=== PATIENT | female | born 1990 | race Caucasian/White ===

== ENCOUNTER 2021-12-15 13:38 | Emergency (ER) | payer OTHER ==
[~2021-12-15] VITALS: Ht 157.5 cm; Wt 67.8 kg
[2021-12-15] MEDS ORDERED: IV NORMAL SALINE 1,000ML 1,000 ML IV ONE (14:00)
--- NOTE | 2021-12-15 14:13 | PHYS DOC ---
General Adult EDM: Chief Complaint: RECTAL BLEED HPI: HPI: 31-year-old female presents with rectal bleeding. Patient states that she has been having bright red bleeding for about the last 1 week. There was no particular event when it started. It is painful when she defecates. Is occasionally uncomfortable when she is just sitting in a chair but not most of the time. She presents today because she has noticed drops of blood even when she is just urinating. She has had a repaired rectal fissure in the past. This was several years ago. The patient does experience occasional constipation. He is not on any blood thinners or aspirin. Review of Systems: Review of Systems: Constitutional: Denies fever or chills Eyes: Denies change in visual acuity HENT: Denies nasal congestion or sore throat Respiratory: Denies cough or shortness of breath Cardiovascular: Denies chest pain or edema GI: Denies abdominal pain, nausea, vomiting, bloody stools or diarrhea : Rectal bleeding, rectal pain Musculoskeletal: Denies back pain or joint pain Integument: Denies rash Neurologic: Denies headache, focal weakness or sensory changes Endocrine: Denies polyuria or polydipsia Lymphatic: Denies swollen glands Psychiatric: Denies depression or anxiety Current Medications: Current Meds: Current Medications Medications (Trade) Dose Ordered Sig/Courtney Start Time Stop Time Status Last Admin Dose Admin Sodium Chloride 1,000 ml @ 1,000 mls/hr 1X ONCE 12/15/21 14:00 12/15/21 14:59 UNV Physical Exam: PE: Constitutional: Well developed, well nourished, no acute distress, non-toxic appearance. [] HENT: Normocephalic, atraumatic, bilateral external ears normal, oropharynx moist, no oral exudates, nose normal. [] Eyes: PERRLA, EOMI, conjunctiva normal, no discharge. [] Neck: Normal range of motion, no tenderness, supple, no stridor. [] Cardiovascular: Heart rate regular rhythm, no murmur [] Lungs & Thorax: Bilateral breath sounds clear to auscultation [] Abdomen: Bowel sounds normal, soft, no tenderness, no masses, no pulsatile masses. [] Skin: Warm, dry, no erythema, no rash. [] Back: No tenderness, no CVA tenderness. [] Extremities: No tenderness, no cyanosis, no clubbing, ROM intact, no edema. [] Neurologic: Alert and oriented X 3, normal motor function, normal sensory function, no focal deficits noted. [] Psychologic: Affect normal, judgement normal, mood normal. Rectal: Normal external exam, pain with HUMBERTO, feeling of fullness or edema of the rectum, no obvious hemorrhoids. [] EKG: EKG: [] Radiology/Procedures: Radiology/Procedures: [] Impressions: EXAMINATION: US PELVIS COMPLETE. HISTORY: 31 years Female Reason: enlarged left ovary / Spl. Instructions: / History: COMPARISON: Correlation was CT scan performed on the same day. TECHNIQUE: Routine transabdominal and transvaginal pelvic ultrasound was perfo rmed. FINDINGS: The uterus is 7.1 x 5.6x 3.7. The endometrial stripe is 1 cm. The endometrium appears slightly heterogenous Bilateral ovaries are normal in size, location, and appearance. The right ovary measures 2.9 x 1.9 x 1.6. The left ovary measures 6.4 x 3.8 x 3.8 cm. The left ovary demonstrate exophytic 4.3 cm hypoechoic cystic lesions with hypoechoic, appearance and increased through transmission. There is no internal solid nodule is seen. Color flow within the ovary however is seen. Trace amount of free fluid is seen in the pelvis. The urinary bladder appears normal. IMPRESSION: Exophytic 4.3 cm complex cystic lesion with internal debris may relate to hemorrhagic cyst. Nonspecific slight heterogeneity in the endometrium is noted with no abnormal thickening for the patient age. Follow-up pelvic ultrasound and 6-8 weeks is recommended to document resolution. Electronically signed by: Douglas Kim MD (12/15/2021 4:33 PM) [id number] DICTATED AND SIGNED BY: DOUGLAS KIM MD DATE: 12/15/21 1628 CC: ANA SHIN DO; PCP,NO ~MTH0 0 CT ABDOMEN+PELVIS WO History: Reason: rectal bleeding / Spl. Instructions: / History: Technique: Noncontrast examination of the abdomen and pelvis. Coronal and sagittal reconstructions were performed. Exposure: One or more of the following individualized dose reduction techniques were utilized for this examination: 1. Automated exposure control 2. Adjustment of the mA and/or kV according to patient size 3. Use of iterative reconstruction technique. Comparison: None Findings: Lower chest: No consolidation or pleural effusion. Abdomen and pelvis: The liver, spleen, adrenal glands, and pancreas are unremarkable. Contracted gallbladder. No renal calculus. No hydronephrosis. Normal appearance of the urinary bladder. Normal appendix. No evidence of bowel obstruction. Moderate colonic stool burden. No pathologic lymphadenopathy. No ascites. Enlarged left ovary with potential cystic lesions difficult to characterize on noncontrast examination. Bones: L1 right posterior vertebral body sclerotic lesion, most likely bone island. Impression: 1. Enlarged left ovary with potential cystic lesions. Recommend ultrasound to further assess. Electronically signed by: Elmo Cao DO (12/15/2021 3:44 PM) [id number] DICTATED AND SIGNED BY: ELMO CAO DO DATE: 12/15/21 152 CC: ANA SHIN DO; PCP,NO ~MTH0 0 Heart Score: C/O Chest Pain: N/A Risk Factors: Risk Factors: DM, Current or recent (<one month) smoker, HTN, HLP, family history of CAD, obesity. Risk Scores: Score 0 - 3: 2.5% MACE over next 6 weeks - Discharge Home Score 4 - 6: 20.3% MACE over next 6 weeks - Admit for Clinical Observation Score 7 - 10: 72.7% MACE over next 6 weeks - Early Invasive Strategies Course & Med Decision Making: Course & Med Decision Making Pertinent Labs and Imaging studies reviewed. (See chart for details) Nurse Catie Dunn accompanied me for the rectal exam. There were no obvious findings of explain the bleeding. She did have a feeling of fullness of the anal canal almost like edema. I will order a CT of the abdomen and pelvis. CT scan is remarkable for enlarged left ovary. See official read for more details. Ultrasound is recommended. I have ordered this. The patient's labs are unr emarkable. Her stool occult was positive for blood. She has had no significant bleeding in the emergency room. This is likely another skin tear or internal hemorrhoids. Patient has moderate stool burden throughout the colon. I have advised that she add daily MiraLAX to her bowel regimen and follow-up with her primary care physician. Ultrasound shows 4.3 cm complex cystic lesion may be hemorrhagic cyst. I recommend follow-up with OB for repeat ultrasound in 6 to 8 weeks. She is stable for discharge at this time. [] Grecia Disclaimer: Dragon Disclaimer: This electronic medical record was generated, in whole or in part, using a voice recognition dictation system. Departure Departure: Impression: Primary Impression: Rectal bleeding Additional Impression: Hemorrhagic cyst of left ovary Disposition: 01 HOME / SELF CARE / HOMELESS Condition: STABLE Referrals: PCP,NO (PCP) Patient Instructions: Ovarian Cyst, [id number], Rectal Bleeding, [id number] ANA SHIN DO Dec 15, 2021 14:13
[2021-12-15 14:30] LABS: FECAL OB PT POSITIVE (NEG)
[2021-12-15] MEDS ORDERED: IOHEXOL 300 MG/ML 75 ML VIAL. IV ONE (14:30)
[2021-12-15 14:52] LABS: BASO % 1 % (0-3); EOS # 0.1 x10^3/uL (0.0-0.7); EOS % 2 % (0-3); HEMATOCRIT 36.3 % (36.0-47.0); HEMOGLOBIN 12.3 g/dL (12.0-15.5); LYMPH # 1.2 x10^3/uL (1.0-4.8); LYMPH % 18 % (24-48); MEAN CORPUSCULAR HEMOGLOBIN 31 pg (25-35); MEAN CORPUSCULAR HGB CONC 34 g/dL (31-37); MEAN CORPUSCULAR VOLUME 92 fL (79-100); MONO # 0.5 x10^3/uL (0.0-1.1); MONO % 8 % (0-9); NEUT # 4.8 x10^3uL (1.8-7.7); NEUT % 72 % (31-73); PLATELET COUNT 223 x10^3/uL (140-400); RED BLOOD COUNT 3.94 x10^6/uL (3.50-5.40); RED CELL DISTRIBUTION WIDTH 13.1 % (11.5-14.5); WHITE BLOOD COUNT 6.7 x10^3/uL (4.0-11.0)
[2021-12-15 14:55] LABS: CALCIUM 8.9 mg/dL (8.5-10.1); CREATININE 0.9 mg/dL (0.6-1.0); GFR 73.5
[2021-12-15 15:01] LABS: ALBUMIN 3.6 g/dL (3.4-5.0); ALBUMIN/GLOBULIN RATIO 1.1 (1.0-1.7); TOTAL BILIRUBIN 0.3 mg/dL (0.2-1.0)
[2021-12-15 15:27] LABS: CLARITY,URINE CLEAR; COLOR,URINE YELLOW; GLUCOSE,URINE NEG (NEG)
[2021-12-15 15:28] LABS: BACTERIA,URINE 0 /HPF (0-FEW); NITRITE,URINE NEG (NEG); RBC,URINE 0 /HPF (0-2); SQUAMOUS EPITHELIAL CELL,UR MOD /LPF; UROBILINOGEN,URINE 0.2 mg/dL (0.2 mg/dL); WBC,URINE RARE /HPF (0-4)
--- NOTE | 2021-12-15 15:47 | RAD ---
CT ABDOMEN+PELVIS WO History: Reason: rectal bleeding / Spl. Instructions: / History: Technique: Noncontrast examination of the abdomen and pelvis. Coronal and sagittal reconstructions we re performed. Exposure: One or more of the following individualized dose reduction techniques were utilized for thi s examination: 1. Automated exposure control 2. Adjustment of the mA and/or kV according to patient size 3. Use of iterative reconstruction technique. Comparison: None Findings: Lower chest: No consolidation or pleural effusion. Abdomen and pelvis: The liver, spleen, adrenal glands, and pancreas are unremarkable. Contracted gall bladder. No renal calculus. No hydronephrosis. Normal appearance of the urinary bladder. Normal appendix. No evidence of bowel obstruction. Moderate colonic stool burden. No pathologic lymp hadenopathy. No ascites. Enlarged left ovary with potential cystic lesions difficult to characterize on noncontrast examinatio n. Bones: L1 right posterior vertebral body sclerotic lesion, most likely bone island. Impression: 1. Enlarged left ovary with potential cystic lesions. Recommend ultrasound to further assess. Electronically signed by: Elmo Cao DO (12/15/2021 3:44 PM) [id number]
--- NOTE | 2021-12-15 16:36 | RAD ---
EXAMINATION: US PELVIS COMPLETE. HISTORY: 31 years Female Reason: enlarged left ovary / Spl. Instructions: / History: COMPARISON: Correlation was CT scan performed on the same day. TECHNIQUE: Routine transabdominal and transvaginal pelvic ultrasound was performed. FINDINGS: The uterus is 7.1 x 5.6x 3.7. The endometrial stripe is 1 cm. The endometrium appears slightly het erogenous Bilateral ovaries are normal in size, location, and appearance. The right ovary measures 2.9 x 1.9 x 1.6. The left ovary measures 6.4 x 3.8 x 3.8 cm. The left ovary demonstrate exophytic 4.3 cm hypoec hoic cystic lesions with hypoechoic, appearance and increased through transmission. There is no inter nal solid nodule is seen. Color flow within the ovary however is seen. Trace amount of free fluid is seen in the pelvis. The urinary bladder appears normal. IMPRESSION: Exophytic 4.3 cm complex cystic lesion with internal debris may relate to hemorrhagic cyst. Nonspecif ic slight heterogeneity in the endometrium is noted with no abnormal thickening for the patient age. Follow-up pelvic ultrasound and 6-8 weeks is recommended to document resolution. Electronically signed by: Eduardo Kim MD (12/15/2021 4:33 PM) [id number]
[2021-12-15 17:10] VITALS: BP 112/67
== END 2021-12-15 17:15 | disposition home or self-care (01) ==
LOC: ER 13:38
DX: N83.202 Unspecified ovarian cyst, left side (principal); K62.5 Hemorrhage of anus and rectum
CPT/HCPCS: 36415; 74176; 76856; 80053; 81001; 81025; 82274; 85025; 96360; 99285; J7030